=== PATIENT | male | born 1995 | race Native Hawaiian/Other Pacific Islander ===

== ENCOUNTER 2017-02-19 12:34 | Emergency (ER) | payer OTHER ==
[~2017-02-19] VITALS: Ht 177.8 cm; Wt 90.7 kg
[2017-02-19 12:50] VITALS: BP 101/62; TEMP 98.4
== END 2017-02-19 15:20 | disposition home or self-care (01) ==
LOC: ED 12:34
DX: S90.31XA Contusion of right foot, initial encounter (principal); W20.8XXA Other cause of strike by thrown, projected or falling object, initial encounter; Y92.69 Other specified industrial and construction area as the place of occurrence of the external cause
CPT/HCPCS: 99283; J1885

== ENCOUNTER 2017-09-13 10:44 | Emergency (ER) | payer OTHER ==
[~2017-09-13] VITALS: Ht 185.4 cm; Wt 90.7 kg
[2017-09-13 13:22] LABS: PLATELET COUNT 99 K/uL (142-355)
[2017-09-13 13:56] VITALS: BP 126/69; TEMP 98
== END 2017-09-13 14:05 | disposition home or self-care (01) ==
LOC: ED 10:44
PROVIDERS: Family Medicine
DX: J02.0 Streptococcal pharyngitis (principal)
CPT/HCPCS: 36415; 85027; 87804; 87880; 99283

== ENCOUNTER 2017-12-18 21:13 | Emergency (ER) | payer OTHER ==
[~2017-12-18] VITALS: Ht 182.9 cm; Wt 74.8 kg
[2017-12-18 21:18] VITALS: BP 148/91; TEMP 98.1
== END 2017-12-18 22:24 | disposition home or self-care (01) ==
LOC: ED 21:13
DX: S96.911A Strain of unspecified muscle and tendon at ankle and foot level, right foot, initial encounter (principal); X50.1XXA Overexertion from prolonged static or awkward postures, initial encounter
CPT/HCPCS: 99282

== ENCOUNTER 2017-12-28 09:55 | Emergency (ER) | payer OTHER ==
[~2017-12-28] VITALS: Ht 185.4 cm; Wt 74.8 kg
[2017-12-28 10:00] VITALS: TEMP 97.9
[2017-12-28 12:00] VITALS: BP 130/68
== END 2017-12-28 12:06 | disposition home or self-care (01) ==
LOC: ED 09:55
DX: S93.401A Sprain of unspecified ligament of right ankle, initial encounter (principal); X50.1XXA Overexertion from prolonged static or awkward postures, initial encounter
CPT/HCPCS: 99282

== ENCOUNTER 2019-01-12 11:15 | Emergency (ER) | payer OTHER ==
[~2019-01-12] VITALS: Ht 185.4 cm; Wt 72.6 kg
[2019-01-12 11:19] VITALS: BP 124/77; TEMP 98.1
== END 2019-01-12 12:20 | disposition home or self-care (01) ==
LOC: ED 11:15
PROC: 2W3DX1Z Immobilization of Left Lower Arm using Splint (ICD-10-PCS; principal; 2019-01-12)
DX: M25.532 Pain in left wrist (principal)
CPT/HCPCS: 99283

== ENCOUNTER 2019-07-11 16:37 | Emergency (ER) | payer OTHER ==
[~2019-07-11] VITALS: Ht 185.4 cm; Wt 81.2 kg
[2019-07-11 16:47] VITALS: TEMP 98.2
[2019-07-11 18:23] VITALS: BP 135/80
== END 2019-07-11 18:24 | disposition home or self-care (01) ==
LOC: ED 16:37
DX: M51.36 Other intervertebral disc degeneration, lumbar region (principal); S39.012A Strain of muscle, fascia and tendon of lower back, initial encounter; X50.9XXA Other and unspecified overexertion or strenuous movements or postures, initial encounter
CPT/HCPCS: 99283; J1885

== ENCOUNTER 2020-03-10 09:13 | Emergency (ER) | payer OTHER ==
[~2020-03-10] VITALS: Ht 185.4 cm; Wt 81.6 kg
[2020-03-10 10:08] VITALS: BP 138/77; TEMP 98.1
== END 2020-03-10 10:10 | disposition home or self-care (01) ==
LOC: ED 09:13
DX: R21 Rash and other nonspecific skin eruption (principal)
CPT/HCPCS: 99281

== ENCOUNTER 2023-02-19 08:30 | Emergency (ER) | payer OTHER ==
[~2023-02-19] VITALS: Ht 190.5 cm; Wt 78.5 kg
[2023-02-19 08:35] VITALS: BP 119/60; TEMP 98.2
[2023-02-19 09:18] LABS: PLATELET COUNT 161 K/uL (142-355)
[2023-02-19 09:31] LABS: POTASSIUM 4.2 mmol/L (3.6-5.2)
== END 2023-02-19 12:25 | disposition home or self-care (01) ==
LOC: ED 08:30
PROVIDERS: Family Medicine
DX: K52.9 Noninfective gastroenteritis and colitis, unspecified (principal); R10.9 Unspecified abdominal pain; F17.290 Nicotine dependence, other tobacco product, uncomplicated
CPT/HCPCS: 36415; 80053; 81002; 82150; 83605; 83690; 85027; 96361; 96374; 99284